=== PATIENT | female | born 1960 | race Caucasian/White ===

== ENCOUNTER 2020-09-12 21:52 | Emergency (ER) | payer OTHER ==
[2020-09-12 22:56] VITALS: BP 137/72
[2020-09-12] MEDS ORDERED: PERCOCET 5/325M1 TAB PO (23:17)
[2020-09-13] MEDS ORDERED: LEVOTHYROXIN125 MCG PO (02:07)
== END 2020-09-12 22:56 | disposition home or self-care (01) | DRG 563 ==
LOC: ED 21:52
DX: S63.616A Unspecified sprain of right little finger, initial encounter (principal); E03.9 Hypothyroidism, unspecified; X50.0XXA Overexertion from strenuous movement or load, initial encounter; Y93.K1 Activity, walking an animal; Y92.009 Unspecified place in unspecified non-institutional (private) residence as the place of occurrence of the external cause

== ENCOUNTER 2020-09-28 10:40 | Emergency (ER) | payer OTHER ==
[~2020-09-28 10:40] MED LIST: LEVOTHYROXIN125 MCG PO; PERCOCET 5/325M1 TAB PO
[2020-09-28] MEDS ORDERED: FUROSEMIDE20 MG PO (10:59)
[2020-09-28] MEDS ORDERED: VOLTAREN1%GEL TOP (12:22)
[2020-09-28 12:39] VITALS: BP 149/67
== END 2020-09-28 12:39 | disposition home or self-care (01) | DRG 204 ==
LOC: ED 10:40
DX: R07.81 Pleurodynia (principal); E03.9 Hypothyroidism, unspecified; W01.0XXA Fall on same level from slipping, tripping and stumbling without subsequent striking against object, initial encounter

== ENCOUNTER 2021-03-19 13:37 | Emergency (ER) | payer OTHER ==
[~2021-03-19] VITALS: Ht 162.6 cm; Wt 111.0 kg
[~2021-03-19 13:37] MED LIST changes: +FUROSEMIDE20 MG PO; +VOLTAREN1%GEL TOP
[2021-03-19] MEDS ORDERED: TRAMADOL HYDROC50 M1 PO (15:42)
[2021-03-19 15:45] VITALS: BP 120/64
== END 2021-03-19 15:45 | disposition home or self-care (01) | DRG 556 ==
LOC: ED 13:37
DX: M25.561 Pain in right knee (principal); E03.9 Hypothyroidism, unspecified; X50.0XXA Overexertion from strenuous movement or load, initial encounter; Y92.009 Unspecified place in unspecified non-institutional (private) residence as the place of occurrence of the external cause

== ENCOUNTER 2023-12-22 12:03 | Observation (INO) | payer OTHER ==
[~2023-12-22] VITALS: Ht 152.4 cm; Wt 80.5 kg
[2023-12-22] VITALS (8 sets, daily range): BP systolic 117–157; BP diastolic 27–72
[~2023-12-22 12:03] MED LIST changes: +TRAMADOL HYDROC50 M1 PO
--- NOTE | 2023-12-22 12:54 | NUR ---
Pt presents c/o palpitations at home. Pt states he [employer] watch told her that her HR dropped to 38bpm last night and that she went into AFib twice. Pt walked to room. NAD noted
[2023-12-22 12:56] LABS: BASO% 0.6 % (0-3); EOS% 1.3 % (0-8); HEMATOCRIT 39.9 % (37.0-47.0); HEMOGLOBIN 12.8 g/dl (12.0-16.0); IMMATURE GRANULOCYTES 0.1 % (0.0-5.0); LYMPH% 36.9 % (15-41); MEAN CELL VOLUME 70.7 fL CALC (80.0-100.0); MEAN CORPUSCULAR HGB 22.7 pG CALC (26.0-32.0); MEAN CORPUSCULAR HGB CONC 32.1 g/dL CAL (32.0-36.0); MONO% 7.1 % (2-13); NEUT# 5.45 thou/uL (2.00-7.15); RED BLOOD COUNT 5.64 mill/uL (4.20-5.60); RED CELL DISTRI WIDTH 19.1 % (11.5-15.5)
[2023-12-22 13:12] LABS: ALBUMIN 4.6 g/dL (3.2-5.0); BILIRUBIN, TOTAL 0.7 mg/dL (0.02-1.3); CREATININE 0.8 mg/dL (0.5-1.0); TOTAL PROTEIN 7.8 g/dL (6.3-8.2)
[2023-12-22 13:21] LABS: POTASSIUM 2.4 mmol/l (3.5-5.1)
[2023-12-22] MEDS ORDERED: MAGNESIUM SULFATE HEPTAHYDRATE 50 ML IV ONE (13:30)
[2023-12-22] MEDS ORDERED: POTASSIUM CHLORIDE 20MEQ 100 ML IV ONE ×2 (13:30)
[2023-12-22 13:43] LABS: TSH, 3RD GENERATION 0.08 uIU/mL (0.47 - 4.68)
--- NOTE | 2023-12-22 16:54 | NUR ---
LAC IV infiltrated with KCL running. . Promptly removed and cold pack applied. informed
--- NOTE | 2023-12-22 17:48 | NUR ---
REPORT GIVEN TO ICU
--- NOTE | 2023-12-22 18:15 | NUR ---
Pt transported to ICU 7
--- NOTE | 2023-12-22 18:30 | NUR ---
PT ARRIVED TO ICU. REPORT RECEIVED OVER THE PHONE. PT IS A/O. ADMITTED FOR HYPOKALEMIA AND BIGEMINY. PT IS NSR AT THIS TIME. 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 DENIES ANY NEEDS AT THIS TIME. CALL LIGHT IN REACH. VSS.
[2023-12-22] MEDS ORDERED: SODIUM CHLORIDE 0.9% 1,000 ML IV PRN (19:45)
--- NOTE | 2023-12-22 20:00 | NUR ---
PATIENT REPORTS PAIN AT IV SITE. FLUIDS INFUSING. IV FLUSHES AND DRAWS BLOOD, IT SEEMS TO BE PAINFUL WITH POSITIONING. PATIENT FOUND A COMFORTABLE POSITION FOR ARM AND AN ICE PACK WAS PLACED, PATIENT REPORTS IT IS FEELING BETTER.
[2023-12-22] MEDS ORDERED: ACETAMINOPHEN 325 MG/TAB PO PRN (21:30)
[2023-12-22] MEDS ORDERED: MAGNESIUM HYDROXIDE 30 ML UDC PO PRN (21:30)
[2023-12-22] MEDS ORDERED: traMADol HCL 50 MG/TAB PO PRN (21:35)
--- NOTE | 2023-12-22 22:00 | NUR ---
PATIENT RESTING IN BED WATCHING TELEVISION AND STATES ALL NEEDS MET AT THIS TIME.
[2023-12-23] VITALS (10 sets, daily range): BP systolic 111–128; BP diastolic 42–64
--- NOTE | 2023-12-23 | NUR ---
PATIENT DISCONNECTED FROM MONITOR TO AMBULATE TO THE RESTROOM UNASSISTED. NO CHANGE SINCE INITIAL ASSESSMENT.
--- NOTE | 2023-12-23 02:00 | NUR ---
PATIENT RESTING IN BED WITH EYES CLOSED. VITAL SIGNS STABLE. PERSONAL BELONGINGS AND CALL LIGHT WITHIN REACH.
--- NOTE | 2023-12-23 04:00 | NUR ---
PATIENT RESTING IN BED. NO CHANGE SINCE INITIAL ASSESSMENT.
[2023-12-23] MEDS ORDERED: [UNRECOGNIZED DRUG - OTHER] (04:13)
[2023-12-23] MEDS ORDERED: BARIATRIC MULTI1 CAP (04:13)
[2023-12-23] MEDS ORDERED: MOUNJARO7.5 MG SC (04:17)
--- NOTE | 2023-12-23 06:00 | NUR ---
PATIENT RESTING IN BED. STATES ALL NEEDS MET AT THIS TIME.
[2023-12-23 06:21] LABS: HEMATOCRIT 36.8 % (37.0-47.0); HEMOGLOBIN 11.8 g/dl (12.0-16.0); MEAN CELL VOLUME 71.2 fL CALC (80.0-100.0); MEAN CORPUSCULAR HGB 22.8 pG CALC (26.0-32.0); MEAN CORPUSCULAR HGB CONC 32.1 g/dL CAL (32.0-36.0); RED BLOOD COUNT 5.17 mill/uL (4.20-5.60); RED CELL DISTRI WIDTH 18.7 % (11.5-15.5)
[2023-12-23 06:35] LABS: ALBUMIN 3.8 g/dL (3.2-5.0); BILIRUBIN, TOTAL 0.6 mg/dL (0.02-1.3); CREATININE 0.7 mg/dL (0.5-1.0)
[2023-12-23 06:45] LABS: MAGNESIUM 2.5 mg/dL (1.6-2.3); TOTAL PROTEIN 6.1 g/dL (6.3-8.2)
[2023-12-23 06:46] LABS: POTASSIUM 2.9 mmol/l (3.5-5.1)
--- NOTE | 2023-12-23 07:37 | NUR ---
PATIENT SITTING UP IN BED. ASSESSMENT COMPLETED. ALERT AND ORIENTED X 4. DENIES PAIN, ISSUES OR CONCERNS AT THIS TIME. LUNGS CLEAR TO ASCULTATION. BREAHTING EVEN AND UNLABORED ON ROOM AIR. SKIN INTACT. AFEBRILE. STRONG PERIPHERAL/PEDAL PULSES. SR ON THE MONITOR. SAFETY MEASURES IN PLACE INCLUDING BED IN LOW POSITION AND CALL LIGHT RESTING NEXT TO R ARM. NO APPARENT DISTRESS NOTED. WILL CONTINUE WITH PLAN OF CARE.
[2023-12-23] MEDS ORDERED: POTASSIUM CHLORIDE 20 MEQ/TAB PO SCH ×2 (08:00→15:00)
[2023-12-23] MEDS ORDERED: POTASSIUM CHLORIDE 20MEQ 100 ML IV SCH (08:00)
--- NOTE | 2023-12-23 10:09 | NUR ---
PATIENT LYING IN BED. DENIES CONCERNS AT THIS TIME. VITAL SIGNS STABLE. WILL CONTINUE TO MONITOR.
--- NOTE | 2023-12-23 12:00 | NUR ---
PATIENT LYING IN BED. VITAL SIGNS STABLE. DENIES ISSUES OR CONCERNS. WILL CONTINUE WITH PLAN OF CARE.
[2023-12-23] MEDS ORDERED: KLOR-CON M2020 MEQ PO (13:31)
[2023-12-23] MEDS ORDERED: LEVOTHYROXIN100 MC1 PO (13:32)
--- NOTE | 2023-12-23 14:24 | NUR ---
PATIENT SITTING UP IN BED. DENIES ISSUES OR CONCERNS AT THIS TIME. NO APPARENT DISTRESS NOTED. WILL CONTINUE [facility] PLAN OF CARE.
--- NOTE | 2023-12-23 16:10 | NUR ---
Discharge instructions given. Patient verbalizes understanding of same. Discharged in stable condition via Ambulatory to Home with spouse. All belongings sent with pt.
[2023-12-23] MEDS ORDERED: ENOXAPARIN SODIUM 40 MG/0.4 ML SYR SC SCH (21:00)
== END 2023-12-23 16:10 | disposition home or self-care (01) | DRG 641 ==
LOC: ED 12:03 → ED-I 13:07 → ED 13:07 → ICU 14:51 → ED 14:51 → ICU 12-23 16:10
PROVIDERS: Family Medicine; ADMIT Internal Medicine; ATTEND Internal Medicine
DX: E87.6 Hypokalemia (principal); I49.3 Ventricular premature depolarization; R00.8 Other abnormalities of heart beat; R94.6 Abnormal results of thyroid function studies; E03.9 Hypothyroidism, unspecified; Z98.84 Bariatric surgery status
CPT/HCPCS: J3475